=== PATIENT | female | born 1955 | race Caucasian/White ===

== ENCOUNTER 2017-04-01 09:34 | Emergency (ER) | payer OTHER ==
[2017-04-01] MEDS ORDERED: Benzonatate 100 MG CAP ONE (10:08)
== END 2017-04-01 10:40 | disposition home or self-care (01) ==
LOC: NAV ERS 09:34
DX: J06.9 Acute upper respiratory infection, unspecified (principal); I10 Essential (primary) hypertension; Z79.899 Other long term (current) drug therapy
CPT/HCPCS: 94640; J7620

== ENCOUNTER 2017-10-15 16:15 | Emergency (ER) | payer OTHER ==
--- NOTE | 2017-10-15 16:53 | RAD ---
2 VIEWS CHEST: Date: 10/15/17 COMPARISON: None. HISTORY: Cough and congestion for a month. FINDINGS: Two views of the chest show normal sized cardiomediastinal silhouette. There is no evidence of consol idation, mass, or pleural effusion. Degenerative changes are seen in the spine. IMPRESSION: No evidence of acute cardiopulmonary disease. POS: [facility]
[2017-10-15] MEDS ORDERED: Benzonatate 100 MG CAP ONE (17:07)
[2017-10-15] MEDS ORDERED: Azithromycin 250 MG TAB ONE (17:35)
== END 2017-10-15 17:45 | disposition home or self-care (01) ==
LOC: NAV ERS 16:15
DX: J20.9 Acute bronchitis, unspecified (principal); I10 Essential (primary) hypertension; Z79.899 Other long term (current) drug therapy
CPT/HCPCS: 71020; 94640; J7620